=== PATIENT | female | born 1975 | race African-American/Black ===

== ENCOUNTER 2018-08-02 22:01 | Emergency (ER) | payer SELFPAY ==
[~2018-08-02] VITALS: Ht 165.1 cm; Wt 107.0 kg
[2018-08-02] MEDS ORDERED: SODIUM CHLORIDE 0.9% 1,000 ML IV ONE (22:51)
[2018-08-02] MEDS ORDERED: ONDANSETRON HCL 4MG/2ML INJ IV STA (22:51)
[2018-08-02 23:53] LABS: BASOPHILS % 0.2 % (0.0-2.0); EOSINOPHILS % 0.6 % (0.0-5.0); HEMATOCRIT. 32.7 % (36.0-48.0); HEMOGLOBIN. 10.6 g/dL (12.0-16.0); LYMPHOCYTES % 15.3 % (20.0-50.0); MEAN CORPUSCULAR VOLUME 77.5 fL (81.0-99.0); MEAN PLATELET VOLUME 7.3 fl (7.4-10.4); MONOCYTES % 6.2 % (2.0-8.0); NEUTROPHILS % 77.7 % (40.0-76.0); PLATELET 364 x1000/uL (130-400); RED BLOOD CELL COUNT 4.22 mill/uL (4.2-5.4); RED CELL DISTRIBUTION WIDTH 19.4 % (11.6-14.6)
[2018-08-02 23:59] LABS: CHLORIDE 103 mEq/L (98-107)
[2018-08-03 01:30] VITALS: BP 121/69
== END 2018-08-03 02:57 | disposition home or self-care (01) ==
LOC: ER 22:01
DX: R42 Dizziness and giddiness (principal); R53.1 Weakness; F99 Mental disorder, not otherwise specified; F17.200 Nicotine dependence, unspecified, uncomplicated; T43.595A Adverse effect of other antipsychotics and neuroleptics, initial encounter; Y92.018 Other place in single-family (private) house as the place of occurrence of the external cause
CPT/HCPCS: 36415; 80053; 81025; 85025; 93005; 96361; 96374; 99284; J2405; J7030

== ENCOUNTER 2022-05-11 07:58 | Emergency (ER) | payer MEDICAID ==
[~2022-05-11] VITALS: Ht 172.7 cm; Wt 73.0 kg
[2022-05-11] MEDS ORDERED: LORAZEPAM 2MG/ML CPJ IM STA (09:49)
[2022-05-11] MEDS ORDERED: OLANZAPINE 10 MG/VIAL IM ONE (10:00)
[2022-05-11 10:07] LABS: BASOPHILS % 0.3 % (0.0-2.0); CHLORIDE 108 mEq/L (98-107); EOSINOPHILS % 2.8 % (0.0-5.0); HEMATOCRIT. 35.1 % (36.0-48.0); HEMOGLOBIN. 11.6 g/dL (12.0-16.0); LYMPHOCYTES % 21.8 % (20.0-50.0); MEAN CORPUSCULAR HEMOGLOBIN 27.1 pg (28.0-32.0); MEAN CORPUSCULAR VOLUME 81.9 fL (81.0-99.0); MEAN PLATELET VOLUME 8.3 fl (7.4-10.4); MONOCYTES % 6.9 % (2.0-8.0); NEUTROPHILS % 68.2 % (40.0-76.0); PLATELET 310 x1000/uL (130-400); RED BLOOD CELL COUNT 4.28 mill/uL (4.2-5.4); RED CELL DISTRIBUTION WIDTH 20.1 % (11.6-14.6)
[2022-05-11 10:20] LABS: ETHANOL BLOOD < 10 mg/dL
[2022-05-11 11:37] LABS: CLARITY URINE TURBID (CLEAR); COLOR URINE DARK YELLOW (YELLOW); KETONES URINE TRACE (NEGATIVE); LEUKOCYTE ESTERASE URINE TRACE (NEGATIVE); NITRITE URINE NEGATIVE (NEGATIVE); OCCULT BLOOD URINE 3+ (NEGATIVE); PH URINE 5.5 (4.5-8.0); PROTEIN URINE 2+ (NEGATIVE); SPECIFIC GRAVITY URINE 1.025 (1.005-1.030)
[2022-05-11 12:11] LABS: *AMPHETAMINES SCREEN URINE NEGATIVE (NEGATIVE); *BARBITURATES SCREEN URINE NEGATIVE (NEGATIVE); *COCAINE SCREEN URINE NEGATIVE (NEGATIVE); METHADONE URINE SCREEN NEGATIVE (NEGATIVE); OPIATES URINE SCREEN NEGATIVE (NEGATIVE); PHENCYCLIDINE URINE SCREEN NEGATIVE (NEGATIVE)
[2022-05-11 12:46] LABS: *BENZODIAZEPINES SCREEN URINE PRESUMTIVE POSITIVE (NEGATIVE); CANNABINOID URINE SCREEN PRESUMTIVE POSITIVE (NEGATIVE)
[2022-05-11 15:07] LABS: HEPATITIS B SURFACE AB < 3.1 mIU/mL
[2022-05-11 15:17] LABS: HEPATITIS B SURFACE ANTIGEN NEGATIVE
[2022-05-11 15:18] LABS: HEPATITIS B SURFACE ANTIGEN NEGATIVE
[2022-05-11] MEDS ORDERED: LORAZEPAM 2MG/ML CPJ IM ONE (20:15)
[2022-05-12 06:08] LABS: HIV SCREEN 4G Non Reactive (Non Reactive)
[2022-05-12] MEDS ORDERED: LORAZEPAM 2MG/ML CPJ IM PRN (06:15)
[2022-05-12] MEDS ORDERED: OLANZAPINE 10 MG/VIAL IM ONE (06:15)
[2022-05-12] MEDS ORDERED: LORAZEPAM 2MG/ML CPJ IM ONE (15:45)
[2022-05-12] MEDS ORDERED: HALOPERIDOL LACTATE 5MG/ML VIAL IM ONE (15:45)
[2022-05-12] MEDS ORDERED: DIPHENHYDRAMINE 50MG/ML VIAL IM ONE (15:45)
[2022-05-13 12:22] VITALS: BP 143/95
[2022-05-13] MEDS ORDERED: RISPERIDONE 1MG TABLET PO SCH (21:00)
== END 2022-05-13 12:32 ==
LOC: ER 07:58
DX: F23 Brief psychotic disorder (principal); Z20.822 Contact with and (suspected) exposure to COVID-19
CPT/HCPCS: 36415; 80053; 80305; 80320; 81003; 82962; 84460; 84703; 85025; 86704; 86706; 86803; 87340; 87389; 96372; 99285; C9803; J1200; J1630; J2060; J3490; U0003; U0005; G0480